=== PATIENT | female | born 1980 | race Caucasian/White ===

== ENCOUNTER → 2016-10-04 | Outpatient (CLI) | payer OTHER ==
--- NOTE | 2016-10-04 12:14 | US ---
EXAMINATION TYPE: US abdomen complete DATE OF EXAM: 10/04/2016 9:16 AM COMPARISON: NONE CLINICAL HISTORY: Abdominal pain R10.9 unspecified. EXAM MEASUREMENTS: Liver Length: 13.2cm Gallbladder Wall: 0.2cm CBD: 0.4cm Spleen: 8.7cm Right Kidney: 10.1 x 4.9 x 4.1cm Left Kidney: 9.8 x 3.8 x 4.7cm TECHNOLOGIST IMPRESSION: Pancreas: wnl Liver: wnl Gallbladder: neck fold seen,wnl Evidence for sonographic Andres's sign: no CBD: wnl Spleen: 1.6cm splenule seen,wnl Right Kidney: wnl Left Kidney: wnl Upper IVC: wnl Abd Aorta: wnl IMPRESSION: NORMAL ABDOMINAL ULTRASOUND.
--- NOTE | 2016-10-04 14:46 | FL ---
EXAMINATION TYPE: FL UGI DATE OF EXAM: 10/04/2016 11:01 AM COMPARISON: NONE HISTORY: History of ulcers, increasing abdomen pain TECHNIQUE: A double contrast UGI study is performed. FINDINGS: Esophagus dilates to normal caliber has normal contour to the gastroesophageal junction. Gastroesopha geal junction opens to normal caliber. Fundus body and antrum of the stomach visualized normal without intraluminal or extramural defects. N o reflux was evident. Duodenal cap and sweep appears normal. IMPRESSION: 1. Normal upper GI.
== END | disposition home or self-care (01) ==
LOC: RADUSWWP 08:53
PROVIDERS: ATTEND Family Medicine
DX: R10.9 Unspecified abdominal pain (principal)
CPT/HCPCS: 74240; 76700

== ENCOUNTER → 2016-10-15 | Outpatient (CLI) | payer OTHER ==
--- NOTE | 2016-10-15 09:06 | NM ---
EXAMINATION TYPE: NM hepatobiliary w EF DATE OF EXAM: 10/15/2016 9:01 AM COMPARISON: NONE HISTORY: Epigastric pain TECHNIQUE: After the intravenous administration of 5.08 mCi Tc 99m Mebrofenin hepatobiliary scintigra phy is performed. Immediate images post injection. FINDINGS: There is satisfactory initial accumulation of tracer by the liver. The gallbladder is visualized wit hin 10 minutes. The small bowel activity is noted within 44 minutes. At one hour 8 ounces of oral e nsure plus is given to mimic CCK and gallbladder ejection fraction is calculated at 85 %. IMPRESSION: Consider hypercontractile state given elevated ejection fraction.
== END | disposition home or self-care (01) ==
LOC: RADNMMAIN 07:00
PROVIDERS: ATTEND Family Medicine
DX: R10.13 Epigastric pain (principal)
CPT/HCPCS: 78226; A9537

== ENCOUNTER 2016-11-06 07:29 | Day surgery (SDC) | payer OTHER ==
[2016-11-01 15:41] VITALS: BMI 20.1
[~2016-11-06 07:29] MED LIST: DEXAMETHASONE SOD PHOSPHATE 10 MG/ML 1 ML VIAL IV ONE; HEPARIN SODIUM,PORCINE 5,000 UNIT/ML 1 ML VIAL SQ ONE; LIDOCAINE 1% 20 ML VIAL (10MG/ML) FOR IV START INTRADERMA PRN; SCOPOLAMINE 1.5MG/72HR PATCH TRANSDERM ONE; ceFAZolin 2 GM in SODIUM CHLORIDE 0.9% 100 ML IVPB ONE
[2016-11-06] MEDS: LACTATED RINGERS 1,000 ML IV SCH ×2 (08:10→08:31)
[2016-11-06] MEDS: ONDANSETRON 4 MG/2 ML VIAL IVP ONE ×2 (08:15→10:59)
[2016-11-06] MEDS ORDERED: GLYCOPYRROLATE 0.2 MG/ML 2 ML VIAL ONE (08:34)
[2016-11-06] MEDS ORDERED: ATROPINE SULFATE 0.4 MG/ML 1 ML VIAL ONE (08:34)
[2016-11-06] MEDS ORDERED: LIDOCAINE 1% INJ 10MG/ML (20 ML MDV) ONE (08:34)
[2016-11-06] MEDS ORDERED: HYDROmorphone (PF) 1 MG/ML ONE (08:34)
[2016-11-06] MEDS ORDERED: NEOSTIGMINE 1 MG/ML 10 ML VIAL ONE (08:34)
[2016-11-06] MEDS ORDERED: fentaNYL (PF) 50 MCG/ML 2 ML AMP ONE (08:34)
[2016-11-06] MEDS ORDERED: MIDAZOLAM 2 MG/2 ML VIAL ONE (08:34)
[2016-11-06] MEDS ORDERED: SUCCINYLCHOLINE CHLORIDE 100 MG/5 ML SYR IV ONE (08:34)
[2016-11-06] MEDS ORDERED: ROCURONIUM BROMIDE 10 MG/ML 10 ML VIAL IV ONE (08:34)
[2016-11-06] MEDS ORDERED: PROPOFOL 10 MG/ML 20 ML VIAL IV ONE (08:34)
--- NOTE | 2016-11-06 08:37 | P.GSHP ---
History of Present Illness H&P Date: 11/06/16 Chief Complaint: Right upper quadrant pain This a 36-year-old female referred from Dr. Meza. Patient presents today for laparoscopic cholecystectomy. She's had complaints of right quadrant pain. She is found have evidence of abnormal HIDA scan with elevated ejection fraction. - Constitutional Constitutional: Reports as per HPI Past Medical History Past Medical History: GERD/Reflux Additional Past Medical History / Comment(s): keinbock's disease-affects bone rt wrist,kidney stones History of Any Multi-Drug Resistant Organisms: None Reported Past Surgical History: Appendectomy, Breast Surgery, Tonsillectomy Past Anesthesia/Blood Transfusion Reactions: Motion Sickness, Postoperative Nausea & Vomiting (PONV) Past Psychological History: No Psychological Hx Reported Smoking Status: Current every day smoker Past Alcohol Use History: Occasional Additional Past Alcohol Use History / Comment(s): STARTED SMOKING AT AGE 11 AND SMOKED ON AND OFF SMOKES 1/4PPD Past Drug Use History: None Reported - Past Family History Mother Family Medical History: Cancer Additional Family Medical History / Comment(s): colon Father Family Medical History: No Reported History Medications and Allergies Home Medications Medication Instructions Recorded Confirmed Type Omeprazole 20 mg PO DAILY 11/01/16 11/06/16 History Allergies Allergy/AdvReac Type Severity Reaction Status Date / Time adhesive AdvReac Rash/Hives Verified 11/06/16 08:00 ibuprofen AdvReac Rash/Hives Verified 11/06/16 08:00 iodine AdvReac Rash/Hives Verified 11/06/16 08:00 Sulfa (Sulfonamide AdvReac Rash/Hives Verified 11/06/16 08:00 Antibiotics) Surgical - Exam Vital Signs Temp Pulse Resp BP Pulse Ox 98.6 F 99 16 132/85 100 11/06/16 07:53 11/06/16 07:53 11/06/16 07:53 11/06/16 07:53 11/06/16 07:53 - General well developed, no distress - Eyes PERRL - ENT normal pinna - Neck no masses - Respiratory normal expansion - Cardiovascular Rhythm: regular - Abdomen Abdomen: soft, non tender Assessment and Plan Plan: Biliary hyperkinesis Chronic cholecystitis We'll perform laparoscopic cholecystectomy
[2016-11-06] MEDS ORDERED: BUPIVACAIN-EPI 0.25%-1:200,000 30 ML VIAL SQ ONE ×2 (08:52)
--- NOTE | 2016-11-06 09:21 | P.OP ---
Date of Procedure: 11/06/16 Preoperative Diagnosis: Cholecystitis Postoperative Diagnosis: Cholecystitis Procedure(s) Performed: Laparoscopic cholecystectomy Anesthesia: IRA Surgeon: Juan C Farr Estimated Blood Loss (ml): 5 Pathology: other (Gallbladder) Condition: stable Disposition: PACU Description of Procedure: The patient was placed on the operating table. The patient received a general endotracheal tube anesthesia. The patients abdomen was prepped and draped in the usual sterile fashion. Through an infraumbilical stab incision, the fascia of the anterior abdominal wall was grasped with a pair of Kochers and then the Veress needle was placed in the peritoneal cavity. Position of the Veress needle was confirmed with positive drop test. The abdomen was then insufflated. After adequate insufflation, the 10 mm trocar was placed in the peritoneal cavity. Following this the laparoscope was placed in the peritoneal cavity. The patient was placed in the head-up, right side up position and then a 5 mm trocar was placed in the right lateral and right subcostal position under direct visualization. A 8 mm trocar was placed in the epigastric position. The gallbladder was grasped in the fundus and infundibulum. Traction on the gallbladder was placed in the lateral and the cephalad positions. The triangle of Calot was visualized.. The cystic duct was bluntly dissected until the union of the cystic duct and common bile duct was seen. The cystic duct was then divided and sealed with the Harmonic scissors. A PDS Endoloop was then placed throughout the cystic duct stump. The cystic artery divided and sealed with the Harmonic scissors. The gallbladder was then removed from the liver bed using Harmonic scissors. The gallbladder was then extracted through the epigastric port site. Operative field was checked for any bleeding spots and Harmonic scissors was used to coagulate the liver bed. The abdomen was irrigated. The trocars were removed. The skin was closed using interrupted 3-0 Vicryl suture. Dermabond dressing were applied. The patient tolerated the procedure well.
[2016-11-06] MEDS: HYDROmorphone 1 MG/ML 1 ML SYRINGE IVP PRN ×2 (09:25→09:32)
[2016-11-06 09:32] VITALS: TEMP 96.4
[2016-11-06] MEDS: MEPERIDINE 50 MG/ML SYRINGE IVP ONE ×2 (09:37→09:45)
[2016-11-06] MEDS ORDERED: KETOROLAC 30 MG/ML 1 ML VIAL IVP ONE (09:45)
[2016-11-06] MEDS ORDERED: LACTATED RINGERS 1,000 ML IV ONE (09:46)
[2016-11-06] MEDS ORDERED: MIDAZOLAM 2 MG/2 ML VIAL IVP ONE (09:47)
[2016-11-06 11:12] VITALS: BP 98/58; PULSE 53; RESP 16
== END 2016-11-06 11:30 | disposition home or self-care (01) ==
LOC: OR 07:29
PROVIDERS: ATTEND Surgery
DX: K81.1 Chronic cholecystitis (principal); K21.9 Gastro-esophageal reflux disease without esophagitis; F17.200 Nicotine dependence, unspecified, uncomplicated; Z87.442 Personal history of urinary calculi; Z79.899 Other long term (current) drug therapy; Z88.2 Allergy status to sulfonamides; Z88.8 Allergy status to other drugs, medicaments and biological substances; Z91.041 Radiographic dye allergy status
CPT/HCPCS: 81025; 88304; 47562; J2250; J0461; J1644; J1100; J2710; J2175; J0690; J2405; J2001; J3010; J1885; J1170; J0330; J2704

== ENCOUNTER → 2017-01-06 | Outpatient (CLI) | payer OTHER ==
--- NOTE | 2017-01-06 15:24 | XR ---
EXAMINATION TYPE: XR KUB DATE OF EXAM: 01/06/2017 10:43 AM CLINICAL DATA: 36-year-old female right-sided stone, [facility] COMPARISON: 09/05/2015 FINDINGS: Nonobstructive bowel gas pattern. Mild stool burden on the right. There is a 1.0 x 0.4 cm calculus in the upper right pelvis. Stable right hemipelvic phleboliths. IUD is present. There appears to be some surgical material projecting at the right mid to lower abdomen. IMPRESSION: 1. A 10 x 4 mm calculus upper right pelvis likely in the distal third right ureter. 2. Some surgical material projects at the right mid to lower abdomen. Correlate for prior surgery suc h as appendectomy.
== END | disposition home or self-care (01) ==
LOC: RADXRMAIN 10:31
PROVIDERS: ATTEND Physician Assistant
DX: N20.0 Calculus of kidney (principal); Z98.890 Other specified postprocedural states
CPT/HCPCS: 74000

== ENCOUNTER → 2018-10-23 | Outpatient (CLI) | payer OTHER | LOC: LABWHC1 08:56 | PROVIDERS: ATTEND Internal Medicine | DX: Z00.5 Encounter for examination of potential donor of organ and tissue (principal) | CPT/HCPCS: 36415; 82947 ==